=== PATIENT | female | born 1990 | race American Indian/Alaskan Native ===

== ENCOUNTER 2016-12-04 19:59 | Emergency (ER) | payer OTHER ==
[2016-12-04 20:24] VITALS: RESP 18; O2SAT 100
--- NOTE | 2016-12-04 21:29 | C.PDOC ---
History Of Present Illness 26 y/o female presents to ED with c/o generalized body aches. Patient states she works at [employer] which involves a lot of movements and frequently works with her hands and bends over often. Notes no relief with Epsom salt bath. Otherwise, denies trauma, headache, neck pain, nausea, vomiting, or other associated symptoms. No new weakness or numbness. Time Seen by Provider: 12/04/16 20:32 Chief Complaint (Nursing): Lower Extremity Problem/Injury History Per: Patient History/Exam Limitations: no limitations Onset/Duration Of Symptoms: Days Current Symptoms Are (Timing): Still Present Recent travel outside of the [place]: No Past Medical History Reviewed: Historical Data, Nursing Documentation, Vital Signs Vital Signs: Last Vital Signs Temp 98 F 12/04/16 21:39 Pulse 77 12/04/16 21:39 Resp 18 12/04/16 21:39 BP 100/70 12/04/16 21:39 Pulse Ox 100 12/05/16 01:16 - Medical History PMH: No Chronic Diseases - [facility] PERITONSILLAR I & D (05/18/13) Family History: States: Unknown Family Hx - Social History Hx Tobacco Use: Yes Hx Alcohol Use: No Hx Substance Use: No - Immunization History Hx Tetanus Toxoid Vaccination: No Hx Influenza Vaccination: No Hx Pneumococcal Vaccination: No Review Of Systems Except As Marked, All Systems Reviewed And Found Negative. Constitutional: Positive for: Malaise Cardiovascular: Negative for: Chest Pain Respiratory: Negative for: Shortness of Breath Gastrointestinal: Negative for: Nausea, Vomiting Musculoskeletal: Negative for: Neck Pain, Back Pain Neurological: Negative for: Weakness, Numbness, Headache, Dizziness Physical Exam - Physical Exam Appears: Non-toxic, No Acute Distress Skin: Normal Color, Warm, Dry Head: Atraumatic, Normacephalic Chest: Symmetrical Cardiovascular: Rhythm Regular Respiratory: Normal Breath Sounds, No Rales, No Rhonchi, No Wheezing Back: Normal Inspection Extremity: Normal ROM, Capillary Refill (< 2 sec. ) Neurological/Psych: Oriented x3, Normal Speech, Normal Cognition ED Course And Treatment O2 Sat by Pulse Oximetry: 100 (RA) Pulse Ox Interpretation: Normal Progress Note: Treated with Motrin. 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 - Scribe Statement The provider has reviewed the documentation as recorded by the Jazmyneibyassine Mac All medical record entries made by the Rigo were at my direction and personally dictated by me. I have reviewed the chart and agree that the record accurately reflects my personal performance of the history, physical exam, medical decision making, and the department course for this patient. I have also personally directed, reviewed, and agree with the discharge instructions and disposition.
[2016-12-04 21:40] VITALS: BP 100/70; PULSE 77; TEMP 98
== END 2016-12-04 21:39 | disposition home or self-care (01) ==
LOC: C.ER 19:59
DX: S39.012A Strain of muscle, fascia and tendon of lower back, initial encounter (principal); S86.919A Strain of unspecified muscle(s) and tendon(s) at lower leg level, unspecified leg, initial encounter; X50.3XXA Overexertion from repetitive movements, initial encounter; Y92.89 Other specified places as the place of occurrence of the external cause

== ENCOUNTER 2017-07-01 22:55 | Emergency (ER) | payer MEDICAID, OTHER ==
[2017-07-01] MEDS ORDERED: Sodium Chloride 0.9% 1,000 ML IV ONE (23:35)
[2017-07-01 23:54] LABS: BASO % 0.3 % (0.0-2.0); EOS # 0.2 K/uL (0.0-0.7); HEMATOCRIT 36.1 % (34.0-47.0); LYMPH # 1.7 K/uL (1.0-4.3); LYMPH % 14.2 % (20.0-40.0); MEAN CELL VOLUME 95.1 fL (81.0-99.0); MEAN CORPUSCULAR HEMOGLOBIN 32.9 pg (27.0-31.0); MEAN CORPUSCULAR HGB CONC 34.6 g/dL (33.0-37.0); MEAN PLATELET VOLUME 7.7 fL (7.2-11.7); MONO # 0.9 K/uL (0.0-0.8); RED CELL DISTRIBUTION WIDTH 13.7 % (11.5-14.5); WHITE BLOOD COUNT 12.2 K/uL (4.8-10.8)
[2017-07-02 00:01] LABS: INR 1.2
[2017-07-02 00:07] LABS: BILIRUBIN,TOTAL 0.7 mg/dL (0.2-1.3); CALCIUM 8.3 mg/dl (8.6-10.4); GFR AFRICAN-AMERICAN > 60; GLUCOSE,RANDOM 79 mg/dL (65-105)
[2017-07-02 00:10] LABS: ALB/GLOB RATIO 0.9 (1.0-2.1); ALKALINE PHOSPHATASE 58 U/L (38-126); ALT/SGPT 18 U/L (9-52); AST/SGOT 30 U/L (14-36); BLOOD UREA NITROGEN 11 mg/dL (7-17); CARBON DIOXIDE 27 mmol/L (22-30); CHLORIDE 97 mmol/L (98-107); POTASSIUM 3.9 mmol/L (3.6-5.2); SODIUM 134 mmol/L (132-148)
--- NOTE | 2017-07-02 00:25 | C.PDOC ---
History Of Present Illness Pt c/o sore throat. She was seen at [facility] ED yesterday and given Rx for antibiotics. Time Seen by Provider: 07/01/17 23:27 Chief Complaint (Nursing): ENT Problem History Per: Patient Onset/Duration Of Symptoms: Days (3) Current Symptoms Are (Timing): Still Present Location Of Pain: Throat Associated Symptoms: Fever, Sore Throat Severity: Moderate Recent travel outside of the [place]: No Additional History Per: Prior Records Past Medical History Reviewed: Historical Data, Nursing Documentation, Vital Signs Vital Signs: Last Vital Signs Temp 98.3 F 07/01/17 23:04 Pulse 75 07/01/17 23:04 Resp 16 07/01/17 23:04 BP 106/70 07/01/17 23:04 Pulse Ox 99 07/01/17 23:04 - Medical History PMH: No Chronic Diseases Other Surgeries: Drainage of peritonsillar abscess - [facility] Procedures PERITONSILLAR I & D (05/18/13) Family History: States: Unknown Family Hx - Social History Hx Tobacco Use: Yes Hx Alcohol Use: No Hx Substance Use: No - Immunization History Hx Tetanus Toxoid Vaccination: No Hx Influenza Vaccination: No Hx Pneumococcal Vaccination: No Review Of Systems Except As Marked, All Systems Reviewed And Found Negative. Constitutional: Positive for: Fever ENT: Positive for: Throat Pain, Throat Swelling. Negative for: Nose Congestion Cardiovascular: Negative for: Chest Pain Respiratory: Negative for: Cough, Shortness of Breath Gastrointestinal: Negative for: Vomiting, Abdominal Pain Musculoskeletal: Negative for: Neck Pain Skin: Negative for: Rash Neurological: Negative for: Weakness, Numbness Physical Exam - Physical Exam Appears: Non-toxic, No Acute Distress Skin: Normal Color, Warm, Dry, No Rash Head: Atraumatic, Normacephalic Eye(s): bilateral: PERRL, EOMI Oral Mucosa: Moist, No Drooling, No Trismus Throat: Erythema, Other (b/l tonsills enlarged) Neck: Normal ROM, Supple Lymphatic: Adenopathy (cervical) Cardiovascular: Rhythm Regular Respiratory: Normal Breath Sounds, No Accessory Muscle Use Gastrointestinal/Abdominal: Soft, No Tenderness Back: No CVA Tenderness Extremity: Normal ROM Neurological/Psych: Oriented x3, No Normal Speech (slightly muffled), Normal Motor, Normal Sensation ED Course And Treatment - Laboratory Results Result Diagrams: 07/01/17 23:50 07/01/17 23:50 Urine POC: Negative O2 Sat by Pulse Oximetry: 99 Pulse Ox Interpretation: Normal Disposition - Disposition Disposition Time: 00:25 Condition: FAIR - Clinical Impression Clinical Impression: Sore throat Physician Patient Turnover Patient Signed Over To: Gerry Crockett Handoff Comments: to f/up CT scan and reassess/dispo pt.
[2017-07-02] MEDS ORDERED: Iodixanol 320 MG/ML 100 ML BOTTLE IV ONE (00:54)
[2017-07-02] MEDS ORDERED: cefTRIAXone IV 1 gm in Dextros 50 ML IVPB ONE ×2 (02:26→03:03)
[2017-07-02] MEDS ORDERED: Dexamethasone 4 mg/1 ml IVP STA (02:59)
[2017-07-02] MEDS ORDERED: Clindamycin 600mg/50ml NS 600 MG/50 ML BAG IVPB ONE (03:03)
[2017-07-02 08:42] VITALS: BP 122/78; PULSE 71; RESP 18; TEMP 98.3; O2SAT 100
--- NOTE | 2017-07-02 08:54 | CT ---
PROCEDURE: CT NECK WITH CONTRAST HISTORY: Sore throat, h/o peritonsillar abscess, r/o absces COMPARISON: 05/12/2013 TECHNIQUE: CT of the neck with intravenous contrast. Coronal and sagittal reformats generated. Intravenous contrast dose: 100 mL Visipaque 320 Radiation dose: DLP 301.99 mGy-cm This CT exam was performed using one or more of the following dose reduction techniques: Automated exposure control, adjustment of the mA and/or kV according to patient size, and/or use of iterative reconstruction technique. FINDINGS: NASOPHARYNX: Unremarkable. SUPRAHYOID NECK: Mild enlargement with heterogeneous low attenuation in the left palatine tonsil consistent with phlegmonous change. No mann circumscribed abscess is appreciable. The right palatine tonsil and lingual tonsil are unremarkable. The adenoidal tonsils are unremarkable. The parapharyngeal spaces are clear. INFRAHYOID NECK: Unremarkable larynx, hypopharynx, and supraglottic space. Vocal cords intact. MASS: None. GLANDS: Parotid and submandibular glands unremarkable. Normal size thyroid gland, without nodule. LYMPH NODES: No abnormally enlarged lymph nodes. There are left-sided jugulodigastric nodes measuring up to 11 mm, likely reactive. CERVICAL SPINE: No fracture or focal lesion. VASCULAR STRUCTURES: Unremarkable. OTHER FINDINGS: None. IMPRESSION: Phlegmonous change in left palatine tonsil without mann abscess. Mild reactive left-sided level 2 cervical nodes. Preliminary interpretation of this examination was reported by [facility] at 1:29 a.m. on 07/02/2017. There is concurrence of this report with the preliminary interpretation.
--- NOTE | 2017-07-02 11:01 | OP ---
PROCEDURE DATE: 07/02/2017 PREOPERATIVE DIAGNOSIS: Peritonsillar abscess. POSTOPERATIVE DIAGNOSIS: Peritonsillar abscess. PROCEDURE: Incision and drainage of peritonsillar abscess. SIGNIFICANT FINDINGS: Peritonsillar abscess. DESCRIPTION OF PROCEDURE: The patient was placed in a seated position. The left peritonsillar area was injected with lidocaine with epinephrine. Incision was made in left peritonsillar area using a #11 blade, clamp dissections done, pus was noted coming out. Loculations were broken using a clamp. Bleeding was controlled with time. The patient tolerated the procedure well. Rodrigue Man MD MTDD
== END 2017-07-02 08:41 | disposition home or self-care (01) ==
LOC: C.ER 22:55
DX: J36 Peritonsillar abscess (principal)
CPT/HCPCS: 42700; 70491; 80053; 84703; 85025; 85610; 85730; 86308; 96361; 96365; 96375; 99284; J0696; J1100; J1885; J7040; Q9967

== ENCOUNTER 2017-10-10 10:35 | Emergency (ER) | payer MEDICAID, OTHER ==
[2017-10-10 10:50] VITALS: BP 114/80; PULSE 74; RESP 18; TEMP 98.8; O2SAT 100
--- NOTE | 2017-10-10 11:14 | C.PDOC ---
History Of Present Illness 27 y/o female c/o right facial swelling and dental pain in right mandible; pt has broken tooth x 2 months that wasn't repaired. denies fever, able to swallow easily. took 2 ibuprofen earlier with mild relief of pain. Time Seen by Provider: 10/10/17 11:04 Chief Complaint (Nursing): Dental Pain History Per: Patient History/Exam Limitations: no limitations Onset/Duration Of Symptoms: Days (2) Current Symptoms Are (Timing): Still Present Severity: Moderate Quality: Positive for: Other (throbbing) Past Medical History Reviewed: Historical Data, Nursing Documentation, Vital Signs Vital Signs: Last Vital Signs Temp 98.8 F 10/10/17 10:47 Pulse 74 10/10/17 10:47 Resp 18 10/10/17 10:47 BP 114/80 10/10/17 10:47 Pulse Ox 100 10/10/17 11:29 - Medical History PMH: No Chronic Diseases - [facility] Procedures PERITONSILLAR I & D (05/18/13) Family History: States: Unknown Family Hx - Social History Hx Tobacco Use: Yes Hx Alcohol Use: Yes Hx Substance Use: No - Immunization History Hx Tetanus Toxoid Vaccination: No Hx Influenza Vaccination: No Hx Pneumococcal Vaccination: No Review Of Systems Constitutional: Negative for: Fever, Chills ENT: Positive for: Mouth Pain, Mouth Swelling (right face). Negative for: Ear Pain Skin: Negative for: Rash Physical Exam - Physical Exam Appears: Non-toxic, No Acute Distress Skin: Warm, Dry Head: Atraumatic, Normacephalic Teeth: Other (broken tooth in right mandible, tender to palpation, tender swollen gingiva on buccal surface, no fluctuance noted, mild swelling right lower face. ) Throat: No Erythema, No Exudate Neck: Supple ED Course And Treatment O2 Sat by Pulse Oximetry: 100 Medical Decision Making Medical Decision Making: pt with broken tooth, tender gums and tooth with mild facial swelling- tx with antibiotics and analgesics, f/u dental. Disposition Counseled Patient/Family Regarding: Diagnosis, Need For Followup, Rx Given - Disposition Disposition: HOME/ ROUTINE Disposition Time: 11:30 Condition: GOOD Additional Instructions: Take antibiotics and ibuprofen as prescribed. Follow up with Dental as soon as possible. Return to ER for any worsening swelling to face or inside mouth,. fever., trouble swallowing or any other concerns. Prescriptions: Amoxicillin [Amoxil 500 mg Cap] 500 mg PO TID #21 cap Ibuprofen [Motrin] 600 mg PO TID #30 tab Forms: General Discharge Instructions, [facility], [place] (Bulgarian), Work Excuse - Clinical Impression Clinical Impression: Dental infection
== END 2017-10-10 11:39 | disposition home or self-care (01) ==
LOC: C.ER 10:35
DX: K04.7 Periapical abscess without sinus (principal)

== ENCOUNTER 2018-03-14 07:02 | Emergency (ER) | payer BC, OTHER ==
[2018-03-14 07:15] VITALS: PULSE 78; RESP 18; BMI 26.2
[2018-03-14 07:54] LABS: BASO % 0.7 % (0.0-2.0); EOS # 0.2 K/uL (0.0-0.7); EOS % 3.3 % (0.0-4.0); HEMOGLOBIN 12.2 g/dL (11.0-16.0); LYMPH # 1.3 K/uL (1.0-4.3); LYMPH % 21.3 % (20.0-40.0); MEAN CELL VOLUME 93.8 fL (81.0-99.0); MEAN CORPUSCULAR HEMOGLOBIN 32.9 pg (27.0-31.0); MEAN PLATELET VOLUME 7.3 fL (7.2-11.7); MONO # 0.4 K/uL (0.0-0.8); MONO % 7.1 % (0.0-10.0); NEUT # 4.2 K/uL (1.8-7.0); NEUT % 67.6 % (50.0-75.0); NRBC % 0.1 % (0.0-2.0); RBC 3.7 Mil/uL (3.80-5.20); RED CELL DISTRIBUTION WIDTH 13.5 % (11.5-14.5); WHITE BLOOD COUNT 6.2 K/uL (4.8-10.8)
[2018-03-14 07:57] LABS: SQUAMOUS EPITHIAL 17 /hpf (0-5); URINE BILIRUBIN NEGATIVE (NEGATIVE); URINE BLOOD NEGATIVE (NEGATIVE); URINE CLARITY Hazy (Clear); URINE COLOR Yellow (YELLOW); URINE GLUCOSE (UA) NORMAL (Normal); URINE LEUKOCYTE ESTERASE NEG Leu/uL (Negative); URINE PROTEIN 1+ mg/dL (NEGATIVE)
[2018-03-14 08:11] LABS: ALB/GLOB RATIO 1.4 (1.0-2.1); ALBUMIN 4.6 g/dL (3.5-5.0); ALT/SGPT 17 U/L (9-52); AST/SGOT 56 U/L (14-36); BLOOD UREA NITROGEN 11 mg/dL (7-17); CALCIUM 9.5 mg/dl (8.6-10.4); GFR AFRICAN-AMERICAN > 60; GFR NON-AFRICAN AMERICAN > 60; LIPASE 33 U/L (23-300)
--- NOTE | 2018-03-14 10:07 | US ---
Pelvic ultrasound History: Pelvic pain. Comparison: None available. Technique: Real-time sonography was performed through the pelvis. Findings: Uterus: 11.6 x 6.2 x 7.5 centimeters. Heterogeneous echotexture. Retroverted. Cervix measures 3.37 centimeters. Intrauterine . Intrauterine gestational sac measuring 2.2 centimeters corresponding to a gestational age of 6 weeks and 6 days. Yolk sac measures 2.9 millimeters. [place]-rump length measures 5.6 millimeters corresponding to a gestational age of 6 weeks 2 days. heart rate of 121 beats per minute. No free fluid in the pelvic cul-de-sac. Right ovary: 2.8 x 1 7 x 3.5 centimeters. Normal flow. Left ovary: 3.5 x 2.15 x 3 2 centimeters. Normal flow. Impression: Intrauterine corresponding to a gestational age of 6 weeks and 2 days by crown-rump length of 5.6 millimeters. heart rate of 121 beats per minute. Limited 1st trimester ultrasound for viability purposes only. Continued interval followup with serial ultrasound, serial HCG levels, and gynecological consultation would be helpful if clinically indicated.
--- NOTE | 2018-03-14 10:23 | C.PDOC ---
History Of Present Illness 27 y/o female presents to the ED complaining of abdominal pain g for the last two weeks. She admits to associated nausea and vomiting .The patient's LNMP was the last week of January. She states her period is normally regular and does not deny the possibility of being . The patient denies any dysuria, hematuria or vaginal bleeding. Time Seen by Provider: 03/14/18 07:28 Chief Complaint (Nursing): Abdominal Pain History Per: Patient History/Exam Limitations: no limitations Onset/Duration Of Symptoms: Days Current Symptoms Are (Timing): Still Present Quality Of Discomfort: "Pain" Associated Symptoms: Nausea, Vomiting. denies: Fever Recent travel outside of the [place]: No Abnormal Vaginal Bleeding: No Last Menstral Period: Last week of January Past Medical History Reviewed: Historical Data, Nursing Documentation, Vital Signs Vital Signs: Last Vital Signs Temp 98 F 03/14/18 10:45 Pulse 78 03/14/18 10:45 Resp 18 03/14/18 10:45 BP 136/72 03/14/18 10:45 Pulse Ox 100 03/14/18 11:23 - Medical History PMH: No Chronic Diseases Surgical History: - [facility] Procedures PERITONSILLAR I & D (05/18/13) Family History: States: Unknown Family Hx - Social History Hx Tobacco Use: Yes Hx Alcohol Use: Yes Hx Substance Use: No - Immunization History Hx Tetanus Toxoid Vaccination: No Hx Influenza Vaccination: No Hx Pneumococcal Vaccination: No Review Of Systems Except As Marked, All Systems Reviewed And Found Negative. Constitutional: Negative for: Fever Respiratory: Negative for: Shortness of Breath Gastrointestinal: Positive for: Nausea, Vomiting, Abdominal Pain Genitourinary: Negative for: Dysuria, Hematuria, Vaginal Bleeding Physical Exam - Physical Exam Appears: Well, Non-toxic, No Acute Distress Skin: Normal Color, Warm, No Rash Head: Atraumatic, Normacephalic Eye(s): bilateral: PERRL, EOMI Ear(s): Bilateral: Normal Oral Mucosa: Moist Neck: Normal ROM Chest: Symmetrical Cardiovascular: Rhythm Regular, No Murmur Respiratory: Normal Breath Sounds, No Rales, No Rhonchi, No Wheezing Gastrointestinal/Abdominal: Tenderness (minimal suprapubic tenderness), No Guarding, No Rebound Back: Normal Inspection Extremity: Normal ROM Extremity: Bilateral: Atraumatic Pulses: Left Radial: Normal, Right Radial: Normal Neurological/Psych: Oriented x3 ED Course And Treatment - Laboratory Results Result Diagrams: 03/14/18 07:48 03/14/18 07:48 Urine POC: Positive O2 Sat by Pulse Oximetry: 100 (RA) Pulse Ox Interpretation: Normal Medical Decision Making Medical Decision Making: Impression: 27 y/o female with abdominal pain, nausea and vomiting Plan: --HCG --CMP --Lipase --CBC --Urine Culture --UA --US Progress: test for patient is positive. On reeval, the patient was advised to follow up with her OBGYN. Disposition - Disposition Referrals: [facility], [Non-Staff] - Disposition: HOME/ ROUTINE Disposition Time: 10:15 Condition: GOOD Additional Instructions: ELDON SCOTT, thank you for letting us take care of you today. The emergency medical care you received today was directed at your acute symptoms. If you were prescribed any medication, please fill it and take as directed. It may take several days for your symptoms to resolve. Return to the Emergency Department if your symptoms worsen, do not improve, or if you have any other problems. Please contact your doctor or call one of the physicians/clinics you have been referred to that are listed on the Patient Visit Information form that is included in your discharge packet. Bring any paperwork you were given at discharge with you along with any medications you are taking to your follow up visit. Our treatment cannot replace ongoing medical care by a primary care provider outside of the emergency department. Thank you for allowing the [facility] team to be part of your care today. You are 6 weeks and 2 days according to the ultrasound done today. 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 - Scribe Statement The provider has reviewed the documentation as recorded by the Scribe (Manuela Wright) Provider Attestation: All medical record entries made by the Scribe were at my direction and personally dictated by me. I have reviewed the chart and agree that the record accurately reflects my personal performance of the history, physical exam, medical decision making, and the department course for this patient. I have also personally directed, reviewed, and agree with the discharge instructions and disposition.
[2018-03-14 10:45] VITALS: BP 136/72; TEMP 98
[2018-03-14 10:46] VITALS: O2SAT 100
== END 2018-03-14 10:45 | disposition home or self-care (01) ==
LOC: C.ER 07:02
DX: O26.891 Other specified pregnancy related conditions, first trimester (principal); O21.9 Vomiting of pregnancy, unspecified; Z3A.01 Less than 8 weeks gestation of pregnancy